=== PATIENT | male | born 1975 | race Caucasian/White ===

== ENCOUNTER → 2016-07-21 | Outpatient (CLI) | payer BC ==
--- NOTE | 2016-07-21 10:03 | US ---
EXAMINATION TYPE: US thyroid st tissue head/neck; total thyroidectomy and lymph node resection 2014 f or thyroid CA DATE OF EXAM: 07/21/2016 9:01 AM COMPARISON: NONE CLINICAL HISTORY: Thyroid CA C73. followup for thyroid CA GLAND SIZE: Right Lobe: Surgically absent Left Lobe: Surgically absent TECHNOLOGIST IMPRESSION: Bilateral neck scanned, no abnormal lymphadenopathy noted. No suspicious lo ankit thyroid tissue is noted post total thyroidectomy; There is hypoechoic oval a well-circumscribed area lateral to right thyroid bed = 0.8 x 0.6 x 0.3cm. Suspect benign lymph node though normal fatty hilum is not well seen. IMPRESSION: Favor benign lymph node adjacent to right thyroid bed, need to further investigate by nuclear medicin e study should be based on clinical and lab correlation.
== END | disposition home or self-care (01) ==
LOC: RADUSWWP 08:40
PROVIDERS: ATTEND Internal Medicine Endocrinology, Diabetes & Metabolism
DX: C73 Malignant neoplasm of thyroid gland (principal)
CPT/HCPCS: 76536

== ENCOUNTER → 2016-11-30 | Outpatient (CLI) | payer BC ==
--- NOTE | 2016-11-30 21:32 | CONS ---
DATE OF CONSULTATION: 11/30/2016 CONSULTATION/NEW PATIENT EVALUATION 41-year-old gentleman who has been the sleep center for obstructive sleep apnea-hypopnea syndrome. HISTORY OF PRESENT ILLNESS/SLEEP-WAKE EVALUATION: Patient had been diagnosed with obstructive sleep apnea-hypopnea syndrome about one year ago. Since that time he is on treatment with CPAP. He uses his CPAP every night. He tries to use his CPAP every night. SLEEP SCHEDULE: Sleep schedule on work days is from around 10:00 p.m. until 6:30 a.m. and on weekends from around 11:00 p.m. until 8:00 a.m. FALLING ASLEEP: Sometimes he has problem with falling asleep. He has a TV set in bedroom. DURING SLEEP: Preferred to sleep on the side position. No snoring with the machine. DURING THE DAY/WAKE STATE: No daytime sleepiness. Mcgregor Sleepiness Scale is 7. I checked with the reading from his machine. CPAP is 7 cm of water. Usage is 80% of the time with more than 4 hours 60% of the time. Apnea-hypopnea index reading is 2.4, which is in normal range. PAST MEDICAL HISTORY: Positive for thyroid cancer, status post thyroidectomy. PAST SURGICAL HISTORY: Total thyroidectomy with several lymph nodes removed from the neck. MEDICATIONS: 1. Synthroid. 2. Calcium supplement. 3. Selenium supplement. SOCIAL HISTORY: Quit smoking 3 months ago. History of smoking for 15 years about half pack a day. Alcohol consumption occasional. FAMILY HISTORY: Hypertension, heart problems, TIA, sleep apnea, snoring, acid reflux, restless legs. REVIEW OF SYSTEMS: No complaints at the present time. Sleeps well during the day. No fevers. No double vision. No recent chest pain. No shortness of breath. No abdominal pain. No bleeding episodes. No blood in urine. No seizure episodes. PHYSICAL EXAMINATION: GENERAL: A 41-year-old [place] gentleman without distress. VITAL SIGNS: BP 127/66, HR 80, RR 18, height 6 feet 1 inch, weight 233.6. BMI 30.7. Neck 17 inches in circumference. Temp is 98.7. Oxygen saturation at room air 95%. OROPHARYNX: Moderately low position of soft palate, wide pillars. NECK: Supple. No JVD. Thyroid is not palpable. LUNGS: Clear to percussion and to auscultation. Good air exchange. No wheezing or rhonchi. HEART: S1, S2 regular. No murmurs, gallops or rubs. ABDOMEN: Soft and nontender. Bowel sounds are present. No organomegaly appreciated. EXTREMITIES: No clubbing or cyanosis. SURGICAL MANAGER: Awake, alert, and oriented x3. Cranial nerves 2 to 7 intact. There is no fasciculation or atrophy noted. No focal deficits observed. IMPRESSION: 1. Obstructive sleep apnea/hypopnea syndrome on control with CPAP at 7 cm of water and patient demonstrated borderline compliance and no sleepiness during the day. 2. History of thyroid cancer, status post thyroidectomy. Lymph nodes removed from the neck. 3. History of tremor in the past. No significant tremor at the present time. 4. Mild obesity. BMI 30.7. PLAN: 1. Prescription for all necessary CPAP supplies. 2. Watching weight. 3. Sleep hygiene with regular time in bed for at least 8 hours. Continue to use CPAP equipment every night for the whole night. 4. No driving if feeling any sleepiness. Thank you very much for referring this patient for consultation. Sincerely, Sylvester Gamboa MD, PhD, FAASM. Diplomat of [place] [employer], Sleep Medicine Board by [place] [employer] [place] [employer] [facility] [employer]
== END ==
LOC: SLEEP 15:31
PROVIDERS: ATTEND Internal Medicine
DX: G47.33 Obstructive sleep apnea (adult) (pediatric) (principal); E66.9 Obesity, unspecified; Z68.30 Body mass index [BMI] 30.0-30.9, adult; Z79.899 Other long term (current) drug therapy; Z87.891 Personal history of nicotine dependence
CPT/HCPCS: 99211

== ENCOUNTER → 2016-12-20 | Outpatient (CLI) | payer BC ==
[2016-12-20 14:03] LABS: Follicle Stimulating Hormone 2.6 mIU/mL (1.6-9.7); Prolactin 21.4 ng/mL (3.7-17.9)
== END | disposition home or self-care (01) ==
LOC: LABWHC1 09:28
PROVIDERS: ATTEND Internal Medicine Endocrinology, Diabetes & Metabolism
DX: C73 Malignant neoplasm of thyroid gland (principal); D35.2 Benign neoplasm of pituitary gland
CPT/HCPCS: 36415; 82533; 83001; 83002; 84146; 84305; 84432; 84443; 86800

== ENCOUNTER → 2017-01-17 | Outpatient (CLI) | payer BC | END | disposition home or self-care (01) | LOC: LABWHC1 14:01 | PROVIDERS: ATTEND Internal Medicine Endocrinology, Diabetes & Metabolism | DX: C73 Malignant neoplasm of thyroid gland (principal) | CPT/HCPCS: 36415; 84403 ==

== ENCOUNTER → 2017-06-26 | Outpatient (CLI) | payer BC ==
[2017-06-26 10:23] LABS: Albumin 4.3 g/dL (3.5-5.0); Anion Gap 10 mmol/L; Blood Urea Nitrogen 21 mg/dL (9-20); Calcium 8.4 mg/dL (8.4-10.2); Carbon Dioxide 29 mmol/L (22-30); Chloride 102 mmol/L (98-107); Glucose 74 mg/dL (74-99); Potassium 4.2 mmol/L (3.5-5.1); Sodium 141 mmol/L (137-145)
[2017-06-26 10:24] LABS: T4, Free (Free Thyroxine) 1.67 ng/dL (0.78-2.19)
[2017-06-26 18:08] LABS: Thyroglobulin <0.20 ng/mL (1.60-59.90)
== END | disposition home or self-care (01) ==
LOC: LABWHC1 09:00
PROVIDERS: ATTEND Internal Medicine Endocrinology, Diabetes & Metabolism
DX: E03.9 Hypothyroidism, unspecified (principal); E20.9 Hypoparathyroidism, unspecified
CPT/HCPCS: 36415; 80048; 82040; 83970; 84432; 84439; 84443

== ENCOUNTER → 2017-07-18 | Outpatient (CLI) | payer BC ==
[2017-07-18 18:13] LABS: Thyroglobulin <0.20 ng/mL (1.60-59.90)
== END | disposition home or self-care (01) ==
LOC: LABWHC1 09:32
PROVIDERS: ATTEND Internal Medicine Endocrinology, Diabetes & Metabolism
DX: C73 Malignant neoplasm of thyroid gland (principal)
CPT/HCPCS: 36415; 84432; 86800

== ENCOUNTER → 2017-07-18 | Outpatient (CLI) | payer BC ==
--- NOTE | 2017-07-18 11:54 | US ---
EXAMINATION TYPE: US thyroid st tissue head/neck DATE OF EXAM: 07/18/2017 COMPARISON: 07/21/2016 CLINICAL HISTORY: 42-year-old male C73. Total thyroidectomy due to cancer x few years ago TECHNIQUE: Multiple sonographic images of the thyroidectomy bed were obtained. FINDINGS: Thyroid gland is surgically absent. Bilateral neck scanned. Lateral to right thyroid lobe fossa, there is a benign-appearing lymph node measuring 1.3 x 0.7 x 0.4 cm (previously measured 8 x 6 x 3 mm) IMPRESSION: 1. Status post thyroidectomy. The thyroid ectomy bed appears clear. 2. A lymph node along the right lateral aspect of the thyroidectomy bed (7 mm short axis) is minimall y larger but still remains normal size and has an overall benign appearance. Follow-up as indicated.
== END | disposition home or self-care (01) ==
LOC: RADUSWWP 09:41
PROVIDERS: ATTEND Internal Medicine Endocrinology, Diabetes & Metabolism
DX: R59.0 Localized enlarged lymph nodes (principal); E89.0 Postprocedural hypothyroidism; C73 Malignant neoplasm of thyroid gland
CPT/HCPCS: 76536

== ENCOUNTER → 2018-04-05 | Outpatient (CLI) | payer BC ==
[2018-04-05 11:02] LABS: ALT 43 U/L (21-72); AST 27 U/L (17-59); Albumin 4.7 g/dL (3.5-5.0); Alkaline Phosphatase 71 U/L (38-126); Anion Gap 10 mmol/L; Blood Urea Nitrogen 18 mg/dL (9-20); Calcium 8.8 mg/dL (8.4-10.2); Carbon Dioxide 29 mmol/L (22-30); Chloride 102 mmol/L (98-107); Glucose 106 mg/dL (74-99); Potassium 4.5 mmol/L (3.5-5.1); Sodium 141 mmol/L (137-145); Total Bilirubin 0.5 mg/dL (0.2-1.3); Total Protein 7.5 g/dL (6.3-8.2)
[2018-04-05 17:53] LABS: Parathyroid Hormone Intact 24.6 pg/mL (14.0-72.0)
[2018-04-05 19:15] LABS: Thyroglobulin <0.20 ng/mL (1.60-59.90)
== END ==
LOC: LABWHC1 10:06
PROVIDERS: ATTEND Internal Medicine Endocrinology, Diabetes & Metabolism
DX: C73 Malignant neoplasm of thyroid gland (principal); D35.2 Benign neoplasm of pituitary gland
CPT/HCPCS: 36415; 80053; 82533; 83001; 83002; 83970; 84146; 84305; 84432; 84443; 86800

== ENCOUNTER → 2018-06-19 | Outpatient (CLI) | payer BC ==
[2018-06-19 16:48] LABS: ACTH 9.37 pg/mL (0.00-45.99)
[2018-06-19 17:28] LABS: Thyroglobulin <0.20 ng/mL (1.60-59.90)
== END | disposition home or self-care (01) ==
LOC: LABWHC1 10:10
PROVIDERS: ATTEND Internal Medicine Endocrinology, Diabetes & Metabolism
DX: C73 Malignant neoplasm of thyroid gland (principal); D35.2 Benign neoplasm of pituitary gland
CPT/HCPCS: 36415; 82024; 82533; 84146; 84403; 84432; 84443; 86800

== ENCOUNTER → 2019-04-10 | Outpatient (CLI) | payer BC ==
[2019-04-10 10:38] LABS: Basophils % (A) 1 %; Eosinophils # (A) 0.2 k/uL (0-0.7); Eosinophils % (A) 5 %; HCT 40.9 % (39.0-53.0); HGB 14.4 gm/dL (13.0-17.5); Lymphocytes # (A) 1.4 k/uL (1.0-4.8); Lymphocytes % (A) 27 %; MCH 31.9 pg (25.0-35.0); MCHC 35.2 g/dL (31.0-37.0); MCV 90.6 fL (80.0-100.0); Mean Platelet Volume 5.7; Monocytes # (A) 0.4 k/uL (0-1.0); Monocytes % (A) 8 %; Neutrophils % (A) 57 %; Platelet Count 207 k/uL (150-450); RBC 4.51 m/uL (4.30-5.90); RDW 12.3 % (11.5-15.5); WBC 5.3 k/uL (3.8-10.6)
[2019-04-10 20:38] LABS: T4, Free (Free Thyroxine) 1.4 ng/dL (0.80-1.80)
[2019-04-10 21:12] LABS: African American GFR (CKD) 104.9 (60.0-200.0); Albumin 4.4 g/dL (3.80-4.90); Albumin/Globulin Ratio 2.44 (1.60-3.17); Anion Gap 8.7 mmol/L (4.00-12.00); Bilirubin, Conjugated 0.2 mg/dL (0.20-0.40); Bilirubin,Unconjugated 0.4 mg/dL; Calcium 8.2 mg/dL (8.7-10.3); Carbon Dioxide 26.3 mmol/L (21.6-31.8); Chol/HDL Ratio 3.32; Globulin 1.8 g/dL (1.6-3.3); Potassium 4.4 mmol/L (3.5-5.5); Total Bilirubin 0.6 mg/dL (0.3-1.2); Total Protein 6.2 g/dL (6.2-8.2)
== END | disposition home or self-care (01) ==
LOC: LABWHC1 09:49
PROVIDERS: ATTEND Internal Medicine Endocrinology, Diabetes & Metabolism
DX: Z00.00 Encounter for general adult medical examination without abnormal findings (principal); C73 Malignant neoplasm of thyroid gland; D35.2 Benign neoplasm of pituitary gland; E03.9 Hypothyroidism, unspecified
CPT/HCPCS: 36415; 80053; 80061; 82248; 82533; 84146; 84432; 84439; 84443; 84481; 85025; 86800

== ENCOUNTER → 2020-07-01 | Outpatient (CLI) | payer BC ==
[2020-07-01 17:05] LABS: Luteinizing Hormone 3.7 mIU/mL
[2020-07-01 17:49] LABS: Prolactin 15.7 ng/mL (2.1-17.7)
[2020-07-01 20:10] LABS: ACTH 7.46 pg/mL (0.00-45.99)
== END | disposition home or self-care (01) ==
LOC: LABWHC1 09:38
PROVIDERS: ATTEND Internal Medicine Endocrinology, Diabetes & Metabolism
DX: C73 Malignant neoplasm of thyroid gland (principal)
CPT/HCPCS: 36415; 82024; 82533; 83002; 84146; 84305; 84432; 84443; 86800

== ENCOUNTER → 2021-06-03 | Outpatient (CLI) | payer BC ==
[2021-06-03 20:38] LABS: African American GFR (CKD) 107.6 (60.0-200.0); Albumin 4.5 g/dL (3.8-4.9); Albumin/Globulin Ratio 2.15 (1.60-3.17); Anion Gap 13.5 mmol/L (10.00-18.00); BUN/Creat Ratio 21.8 Ratio (12.00-20.00); Blood Urea Nitrogen 21.1 mg/dL (9.0-27.0); Calcium 8.3 mg/dL (8.7-10.3); Carbon Dioxide 24.8 mmol/L (20.0-27.5); Globulin 2.1 g/dL (1.6-3.3); Non-African American GFR(CKD) 92.8 (60.0-200.0); Potassium 4.5 mmol/L (3.5-5.5); Total Bilirubin 0.4 mg/dL (0.30-1.20); Total Protein 6.5 g/dL (6.2-8.2)
[2021-06-03 20:39] LABS: Prolactin 18.4 ng/mL (2.100-17.700)
== END | disposition home or self-care (01) ==
LOC: LABWHC1 09:08
PROVIDERS: ATTEND Internal Medicine Endocrinology, Diabetes & Metabolism
DX: C73 Malignant neoplasm of thyroid gland (principal); D35.2 Benign neoplasm of pituitary gland; E83.51 Hypocalcemia
CPT/HCPCS: 36415; 80053; 82306; 82533; 83970; 84146; 84432; 84443; 86800

== ENCOUNTER → 2021-06-07 | Outpatient (CLI) | payer BC ==
--- NOTE | 2021-06-07 09:07 | US ---
EXAMINATION TYPE: US thyroid st tissue head/neck DATE OF EXAM: 06/07/2021 COMPARISON: US Thyroid 07/18/2017 CLINICAL HISTORY: C73 Malignant neoplasm of thyroid gland. Hx of total thyroidectomy due to CA. GLAND SIZE: Thyroid gland is surgically absent. Bilateral neck scanned. Lateral to the right thyroid lobe fossa, there is a benign-appearing lymph no de measuring 1.3 x 0.3 x 0.7 cm. Previously seen, measured as 1.3 x 0.7 x 0.4 cm. IMPRESSION: Postop change
== END | disposition home or self-care (01) ==
LOC: RADUSWWP 08:37
PROVIDERS: ATTEND Internal Medicine Endocrinology, Diabetes & Metabolism
DX: E89.0 Postprocedural hypothyroidism (principal); Z85.850 Personal history of malignant neoplasm of thyroid
CPT/HCPCS: 76536

== ENCOUNTER 2021-07-02 13:23 | Emergency (ER) | payer BC ==
[2021-07-02 13:33] VITALS: BP 117/79; PULSE 74; RESP 18; TEMP 98.1
[2021-07-02] MEDS ORDERED: TETRACAINE 0.5% OPHTH (PF) DROPS 4 ML BTL LEFT EYE STA (14:16)
[2021-07-02] MEDS ORDERED: FLUORESCEIN STRIPS 1 MG STRIP LEFT EYE ONE (14:16)
--- NOTE | 2021-07-02 15:34 | ED ---
General Adult HPI - General Chief complaint: Eye Problems Stated complaint: Foreign body in eye Time Seen by Provider: 07/02/21 13:59 Source: patient, RN notes reviewed Mode of arrival: ambulatory Limitations: no limitations - History of Present Illness Initial comments: 25-year-old male presents to the emergency Department with complaints of possible foreign body in the left eye. Patient states he has had two episodes of possible metallic foreign bodies in the left eye. On Sunday, states a small shard from his dremmel tool broke off and may have possibly embedded in his the inside of his left eyelid. States yesterday he was working underneath his truck when a aggie of rust broke off possibly landing in his left eye as well. Patient states he did purchase an [id number] eye rinse kit and used that. States he does have a sense of constant irritation under the left eyelid but is unable to visualize any object. Denies loss of vision, vision change, drainage from the eye, or sensitivity to light. States Tetanus shot is up to date. - Related Data Previous Rx's Medication Instructions Recorded Ciprofloxacin Ophth Soln [Cipro 1 drops LEFT EYE Q4HR #5 ml 07/02/21 0.3% Ophth Soln] Allergies Allergy/AdvReac Type Severity Reaction Status Date / Time No Known Allergies Allergy Verified 07/02/21 13:33 Review of Systems ROS Statement: Those systems with pertinent positive or pertinent negative responses have been documented in the HPI. ROS Other: All systems not noted in ROS Statement are negative. Past Medical History Additional Past Medical History / Comment(s): Thyroid cancer, History of Any Multi-Drug Resistant Organisms: None Reported Additional Past Surgical History / Comment(s): Thyroidectomy Past Psychological History: No Psychological Hx Reported Smoking Status: Current every day smoker Past Alcohol Use History: Daily Past Drug Use History: None Reported General Exam Limitations: no limitations (Well-developed, well-nourished male in no acute distress. Initial temperature 98.1, pulse 74, respirations 18, blood pressure 117/79, pulse ox 100% on room air.) General appearance: alert, in no apparent distress Eye exam: Present: normal appearance, PERRL, EOMI, conjunctival injection (mildly injected left conjunctiva). Absent: periorbital swelling, periorbital tenderness Pupils: Present: other (no foreign body visualized in left eye or eyelid upon visual inspection or with fluorescein stain/UV light; small focal area of fluorescein uptake at the two o'clock position on the left upper outer cornea) Expanded Eyelids: Normal Inspection: Bilateral Pupils: Regular, Round: Bilateral, Reactive: Bilateral Sclera/Conjunctival: Normal Inspection: Right, Injection: Left Visual acuity (R) = 20/: 20 Visual acuity (L) = 20/: 20 With correction: No IOP (L) in mmH Respiratory exam: Present: normal lung sounds bilaterally. Absent: respiratory distress, wheezes, rales, rhonchi, stridor Cardiovascular Exam: Present: regular rate, normal rhythm, normal heart sounds. Absent: systolic murmur, diastolic murmur, rubs, gallop, clicks Neurological exam: Present: alert, oriented X3, CN II-XII intact Psychiatric exam: Present: normal affect, normal mood Skin exam: Present: warm, dry, intact, normal color. Absent: rash Course Vital Signs 07/02/21 13:29 Temperature 98.1 F Pulse Rate 74 Respiratory 18 Rate Blood Pressure 117/79 O2 Sat by Pulse 100 Oximetry Procedures - Procedures Initial comment: Left eye anesthetized with tetracaine drop. Fluorescein stain applied to left eye. Visual exam conducted with Wood's lamp. Focal area of uptake noted in the 2 o'clock position of the left cornea. No foreign body visualized eye or under eyelid. Patient tolerated procedure without difficulty. Medical Decision Making - Medical Decision Making 45-year-old male presents to the emergency department with a chief complaint of foreign body sensation in the left eye. Patient has had 2 occasions of foreign body exposure in the past 2 days. Upon exam, patient is well-appearing and in no acute distress. Vital signs are stable. He does have mildly injected left conjunctiva. Denies vision change. No light sensitivity. Visual acuity is 20/20 in each eye and bilateral. IOP is WNL. No foreign body visualized in eye or when lid is everted. Fluorescein stain does show small area of focal uptake at the 2 o'clock position on the left cornea. Patient will be started on antibiotic eyedrops and instructed to follow up with ophthalmology. He is not a contact lens wearer. States his tetanus shot is up-to-date therefore did not receive one while present in the emergency department. Return parameters were discussed in detail. Patient verbalizes understanding and agrees with this plan. This patient's care was discussed with my attending Dr. Tipton. Disposition Clinical Impression: Corneal abrasion, left Disposition: HOME SELF-CARE Condition: Stable Instructions (If sedation given, give patient instructions): Corneal Abrasion (ED) Additional Instructions: Use antibiotic eye drops as directed. Please use eye protection. Follow up with your eye doctor or health practice manager listed on your paperwork. Call on Sunday to schedule appointment. Return to the emergency department with any new, worsening, or concerning symptoms. Prescriptions: Ciprofloxacin Ophth Soln [Cipro 0.3% Ophth Soln] 1 drops LEFT EYE Q4HR #5 ml Is patient prescribed a controlled substance at d/c from ED?: No Referrals: None,Stated [Primary Care Provider] - 1-2 days Jayme Montenegro MD [STAFF PHYSICIAN] - 1-2 days Time of Disposition: 15:44
== END 2021-07-02 15:45 | disposition home or self-care (01) ==
LOC: EC 13:23
DX: S05.02XA Injury of conjunctiva and corneal abrasion without foreign body, left eye, initial encounter (principal); F17.200 Nicotine dependence, unspecified, uncomplicated; X58.XXXA Exposure to other specified factors, initial encounter
CPT/HCPCS: 99282

== ENCOUNTER → 2022-07-04 | Outpatient (CLI) | payer BC ==
[2022-07-06 03:18] LABS: T4, Free (Free Thyroxine) 1.73 ng/dL (0.800-1.800)
== END | disposition home or self-care (01) ==
LOC: LABWHC1 11:59
PROVIDERS: ATTEND Internal Medicine Endocrinology, Diabetes & Metabolism
DX: C73 Malignant neoplasm of thyroid gland (principal); E89.2 Postprocedural hypoparathyroidism; D35.2 Benign neoplasm of pituitary gland
CPT/HCPCS: 36415; 82024; 82533; 83970; 84146; 84432; 84439; 84443; 86800

== ENCOUNTER → 2023-08-31 | Outpatient (CLI) | payer BC ==
[2023-09-01 04:45] LABS: T4, Free (Free Thyroxine) 1.75 ng/dL (0.80-1.80)
[2023-09-01 06:39] LABS: ACTH 12.1 pg/mL (0.00-45.99)
[2023-09-01 13:57] LABS: Prolactin 16.7 ng/mL (2.100-17.000)
== END | disposition home or self-care (01) ==
LOC: LABWHC1 15:39
PROVIDERS: ATTEND Internal Medicine Endocrinology, Diabetes & Metabolism
DX: C73 Malignant neoplasm of thyroid gland (principal); D35.2 Benign neoplasm of pituitary gland
CPT/HCPCS: 36415; 82024; 82533; 84146; 84305; 84403; 84432; 84439; 84443; 86800

== ENCOUNTER → 2023-11-13 | Outpatient (CLI) | payer BC ==
--- NOTE | 2023-11-14 19:35 | US ---
EXAMINATION TYPE: US thyroid st tissue head/neck DATE OF EXAM: 11/13/2023 COMPARISON: NONE CLINICAL INDICATION: Male, 48 years old with history of E83.51 HYPOCALCEMIA; Patient denies any zavala es from prior GLAND SIZE: Right Lobe: Surgically absent cm Overall Parenchyma: Left Lobe: Surgically absent cm Overall Parenchyma: Isthmus Thickness: Surgically absent cm NODULES RIGHT: # of nodules measured on right: 0 LEFT: # of nodules measured on left: 0 ISTHMUS: # of nodules measured in the isthmus: 0 Bilateral neck scanned, lymph node at right lateral neck redemonstrated, no evidence of enlarged lymp hadenopathy. IMPRESSION: 1. No recurrent or residual thyroid tissue at thyroid bed identified.
== END | disposition home or self-care (01) ==
LOC: RADUSWWP 14:48
PROVIDERS: ATTEND Family Medicine
DX: E83.51 Hypocalcemia (principal)
CPT/HCPCS: 76536